=== PATIENT | female | born 1955 | race Caucasian/White ===

== ENCOUNTER 2020-08-06 13:42 | Emergency (ER) | payer MEDICARE, OTHER ==
--- NOTE | 2020-08-06 14:11 | ED Physician Documentation ---
History of Present Illness - Stated complaint Stated Complaint: SOA/PALPITATIONS - Chief complaint Chief Complaint: Cardiac - History obtained from History obtained from: Patient, Family - History of Present Illness Timing: Today Pain level max: 0 Pain level now: 0 - Additonal information Additional information: Is a 65-year-old female who is status post cardiac stent on June 02 in [place]. She states that she has been having palpitations since that time. She was seen at cardiac rehab 4 days ago and they stated that she had premature ventricular contractions. She states that the symptoms have continued since that time. Feels intermittently short of breath as well. Nothing makes it better or worse. She is unsure of what medication she is on currently but does know that she is on a statin and Brilinta. Patient is unsure of the doses. She does not smoke. No chest pain. No fevers. No cough. No chills. Review of Systems Ten Systems: 10 systems reviewed and negative Constitutional: denies: Fever, Chills Respiratory: denies: Cough GI: denies: Nausea, Vomiting, Diarrhea Skin: denies: Rash Musculoskeletal: denies: Neck pain, Back pain Neurologic: denies: Headache PD PAST MEDICAL HISTORY - Past Medical History Past Medical History: Yes Cardiovascular: Coronary artery disease - Past Surgical History Past Surgical History: Yes Cardiovascular: Coronary stent - Present Medications Home Medications: Ambulatory Orders Medication Instructions Recorded Confirmed Albuterol Sulfate [Proair 90 mcg IH PRN PRN 08/06/20 08/06/20 Digihaler] Alprazolam [Xanax] 0.25 mg PO PRN PRN 08/06/20 08/06/20 Cetirizine [ZyrTEC] 10 mg PO DAILY 08/06/20 08/06/20 Cholecalciferol [Vitamin D3] 1 tab PO DAILY 08/06/20 08/06/20 Cyanocobalamin (Vitamin B-12) 1,000 mcg PO DAILY 08/06/20 08/06/20 [Vitamin B-12] Fluticasone Propionate [Flovent 50 mcg IH DAILY 08/06/20 08/06/20 Diskus] Fluticasone/Salmeterol [Advair 1 each IH DAILY 08/06/20 08/06/20 100-50 Diskus] Montelukast [Singulair] 10 mg PO QPM 08/06/20 08/06/20 Ofloxacin 0.3% Ophth Drops 3 drops EACHEYE DAILY 08/06/20 08/06/20 [Ocuflox 0.3% Ophth Drops] Rosuvastatin Calcium [Ezallor 10 mg PO DAILY 08/06/20 08/06/20 Sprinkle] Sertraline [Zoloft] 100 mg PO DAILY 08/06/20 08/06/20 Ticagrelor [Brilinta] 90 mg PO DAILY 08/06/20 08/06/20 busPIRone [Buspar] 5 mg PO BID 08/06/20 08/06/20 diazePAM [Valium] 5 mg PO DAILY PM 08/06/20 08/06/20 - Allergies Allergies/Adverse Reactions: Allergies Allergy/AdvReac Type Severity Reaction Status Date / Time No Known Drug Allergies Allergy Verified 08/06/20 13:53 - Living Situation Living Situation: reports: With family Living Arrangement: reports: At home PD ED PE NORMAL - Vitals Vital signs reviewed: Yes - General General: Alert and oriented X 3, No acute distress - HEENT HEENT: Moist mucous membranes - Neck Neck: Supple, no meningeal sign - Cardiac Cardiac: RRR, Strong equal pulses - Respiratory Respiratory: No respiratory distress, Clear bilaterally - Abdomen Abdomen: Soft, Non tender, Non distended - Derm Derm: Warm and dry - Extremities Extremities: No edema, No calf tenderness / cord - Neuro Neuro: Alert and oriented X 3 - Psych Psych: Normal mood, Normal affect Results - Vitals Vitals: Vital Signs - 24 hr 08/06/20 08/06/20 08/06/20 13:46 13:59 15:32 Temperature 37.3 C Heart Rate 72 93 63 Respiratory 16 12 10 L Rate Blood Pressure 107/68 107/68 114/65 O2 Saturation 98 99 97 Oxygen O2 Source Room air - EKG (time done) 1346 Rate: Rate (enter#) (69) Rhythm: NSR Brothers: Normal Intervals: Normal MO QRS: Normal Ischemia: Normal ST segments - Labs Labs: Laboratory Tests 08/06/20 08/06/20 08/06/20 13:53 13:53 13:53 WBC 10.1 RBC 3.79 L Hgb 12.0 Hct 35.2 L MCV 92.9 MCH 31.7 H MCHC 34.1 RDW 13.6 Plt Count 283 MPV 10.2 Neut # (Auto) 4.7 Lymph # (Auto) 4.1 H Dickens # (Auto) 0.8 Eos # (Auto) 0.4 Baso # (Auto) 0.1 Absolute Nucleated RBC 0.00 Nucleated RBC % 0.0 Sodium 137 Potassium 3.5 Chloride 104 Carbon Dioxide 23 Anion Gap 10.0 BUN 18 Creatinine 0.6 Estimated GFR (MDRD) 100 Glucose 87 Calcium 9.6 Phosphorus 3.3 Magnesium 2.5 Total Bilirubin 0.5 AST 27 ALT 31 Alkaline Phosphatase 61 Troponin I High Sens 3.0 Total Protein 7.2 Albumin 4.5 Globulin 2.7 Albumin/Globulin Ratio 1.7 Lipase 35 - Rads (name of study) cxr Radiology: Prelim report reviewed, EMP read contemporaneously, See rad report (No acute disease) PD MEDICAL DECISION MAKING - ED course Complexity details: reviewed results, re-evaluated patient, considered differential (No ST elevation AZ, no aortic dissection, no PE, no tension pneumothorax, no aortic aneurysm), d/w patient ED course: Patient with symptomatic PVCs. These are occasional. She also has a dyspnea, likely secondary to the Brilinta. 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 She does not have a medication list with her. If she is not on a beta-isabella, 1 may help with her symptomatic PVCs. No evidence of acute AZ, PE, pneumothorax. Symptoms resolved in the emergency department. We will have her follow-up with her tin plater. Patient counseled regarding signs and symptoms for which I believe and urgent re-evaluation would be necessary. Patient with good understanding of and agreement to plan and is comfortable going home at this time This document was made in part using voice recognition software. While efforts are made to proofread this document, sound alike and grammatical errors may occur. Departure - Departure Disposition: 01 Home, Self Care Clinical Impression: Premature ventricular contraction Dyspnea Qualifiers: Dyspnea type: shortness of breath Qualified Code(s): R06.02 - Shortness of breath Condition: Good Instructions: Premature Ventricular Contract About, Premature Ventricular Contract Tx Follow-Up: your,doctor in 1 week [Other] Comments: You do have premature ventricular contractions. Is important to follow-up with cardiology regarding this to see if they need to adjust your medications. The Brilinta may be causing the dyspnea as that is a common side effect and will likely go away if they change you to a different medication. Please follow-up with cardiology regarding this as well. Return if you worsen. Discharge Date/Time: 08/06/20 15:38
--- NOTE | 2020-08-06 14:20 | XRAY Report ---
PROCEDURE: Chest 1 View X-Ray INDICATIONS: Chest Pain TECHNIQUE: One view of the chest was acquired. COMPARISON: None FINDINGS: Surgical changes and devices: None. Lungs and pleura: No pleural effusions or pneumothorax. Lungs are clear. Mediastinum: Mediastinal contours appear normal. Heart size is normal. Bones and chest wall: No suspicious bony lesions. Overlying soft tissues appear unremarkable. IMPRESSION: No evidence acute pulmonary process. Reviewed by: Lewis Donahue MD on 08/06/2020 1:18 PM VERONIKA Approved by: Lewis Donahue MD on 08/06/2020 1:18 PM VERONIKA Station ID: [id number]
[2020-08-06 14:22] LABS: BASOPHILS # (AUTO) 0.1 10^3/uL (0.0-0.1); BASOPHILS % (AUTO) 0.8 %; EOSINOPHILS # (AUTO) 0.4 10^3/uL (0.0-0.7); EOSINOPHILS % (AUTO) 3.6 %; HCT - HEMATOCRIT 35.2 % (37.0-47.0); LYMPHOCYTES # (AUTO) 4.1 10^3/uL (1.5-3.5); LYMPHOCYTES % (AUTO) 40.6 %; MEAN CORPUSCULAR HEMOGLOBIN 31.7 pg (27.0-31.0); MEAN CORPUSCULAR HGB CONC 34.1 g/dL (32.0-36.0); MEAN CORPUSCULAR VOLUME 92.9 fL (81.0-99.0); MEAN PLATELET VOLUME 10.2 fL (7.9-10.8); MONOCYTES # (AUTO) 0.8 10^3/uL (0.0-1.0); MONOCYTES % (AUTO) 8.3 %; NEUTROPHILS # (AUTO) 4.7 10^3/uL (1.5-6.6); NEUTROPHILS % (AUTO) 46.5 %; PLT - PLATELET COUNT 283 10^3/uL (130-450); RED BLOOD COUNT 3.79 10^6/uL (4.20-5.40); RED CELL DISTRIBUTION WIDTH 13.6 % (12.0-15.0); WHITE BLOOD COUNT 10.1 x10^3/uL (4.8-10.8)
[2020-08-06 14:36] LABS: ALBUMIN 4.5 g/dL (3.2-5.5); ALBUMIN/GLOBULIN RATIO 1.7 (1.0-2.2); BILIRUBIN,TOTAL 0.5 mg/dL (0.2-1.0); CALCIUM 9.6 mg/dL (8.5-10.3); CREATININE 0.6 mg/dL (0.4-1.0); MAGNESIUM 2.5 mg/dL (1.7-2.8); PHOSPHORUS 3.3 mg/dL (2.5-4.6); POTASSIUM 3.5 mmol/L (3.5-5.0); TOTAL PROTEIN 7.2 g/dL (6.7-8.2)
[2020-08-06 15:33] VITALS: BP 114/65
== END 2020-08-06 15:38 | disposition home or self-care (01) ==
LOC: ED 13:42
DX: I49.3 Ventricular premature depolarization (principal); R06.02 Shortness of breath; I25.10 Atherosclerotic heart disease of native coronary artery without angina pectoris; Z95.5 Presence of coronary angioplasty implant and graft
CPT/HCPCS: 36415; 80053; 83690; 83735; 84100; 84484; 85025; 93005; 99284

== ENCOUNTER 2020-09-19 11:57 | Emergency (ER) | payer MEDICARE, OTHER ==
[2020-09-19 12:25] VITALS: BP 144/61
--- NOTE | 2020-09-19 13:02 | ED Physician Documentation ---
PD HPI HEAD INJURY - Stated complaint Stated Complaint: HEAD PX - Chief complaint Chief Complaint: Trauma Hd/Nk - History obtained from History obtained from: Patient - Additional information Additional information: 65-year-old woman who is on anticoagulation for coronary disease, specifically Effient and aspirin hit the back of her head on a nonrunning fan on their boat just prior to arrival. No loss of consciousness, headache, or other injuries. Review of Systems Constitutional: denies: Fever, Chills Cardiac: reports: Reviewed and negative Respiratory: reports: Reviewed and negative PD PAST MEDICAL HISTORY - Past Medical History Cardiovascular: Coronary artery disease Respiratory: Asthma Psych: Depression, Anxiety - Past Surgical History Past Surgical History: Yes Cardiovascular: Coronary stent - Present Medications Home Medications: Ambulatory Orders Medication Instructions Recorded Confirmed Albuterol Sulfate [Proair 90 mcg IH PRN PRN 08/06/20 08/06/20 Digihaler] Alprazolam [Xanax] 0.25 mg PO PRN PRN 08/06/20 08/06/20 Cetirizine [ZyrTEC] 10 mg PO DAILY 08/06/20 08/06/20 Cholecalciferol [Vitamin D3] 1 tab PO DAILY 08/06/20 08/06/20 Cyanocobalamin (Vitamin B-12) 1,000 mcg PO DAILY 08/06/20 08/06/20 [Vitamin B-12] Fluticasone Propionate [Flovent 50 mcg IH DAILY 08/06/20 08/06/20 Diskus] Fluticasone/Salmeterol [Advair 1 each IH DAILY 08/06/20 08/06/20 100-50 Diskus] Montelukast [Singulair] 10 mg PO QPM 08/06/20 08/06/20 Ofloxacin 0.3% Ophth Drops 3 drops EACHEYE DAILY 08/06/20 08/06/20 [Ocuflox 0.3% Ophth Drops] Rosuvastatin Calcium [Ezallor 10 mg PO DAILY 08/06/20 08/06/20 Sprinkle] Sertraline [Zoloft] 100 mg PO DAILY 08/06/20 08/06/20 Ticagrelor [Brilinta] 90 mg PO DAILY 08/06/20 08/06/20 busPIRone [Buspar] 5 mg PO BID 08/06/20 08/06/20 diazePAM [Valium] 5 mg PO DAILY PM 08/06/20 08/06/20 - Allergies Allergies/Adverse Reactions: Allergies Allergy/AdvReac Type Severity Reaction Status Date / Time No Known Drug Allergies Allergy Verified 08/06/20 13:53 - Social History Does the pt smoke?: No Smoking Status: Never smoker Does the pt drink ETOH?: No - Immunizations Immunizations are current?: Yes - POLST Patient has POLST: No PD ED PE NORMAL - Vitals Vital signs reviewed: Yes - General General: Alert and oriented X 3, No acute distress - HEENT HEENT: PERRL, EOMI - Neck Neck: Supple, no meningeal sign, No bony TTP - Neuro Neuro: Alert and oriented X 3, 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, No motor deficit, No sensory deficit, Normal speech Eye Opening: Spontaneous Motor: Obeys Commands Verbal: Oriented GCS Score: 15 Results - Vitals Vitals: Vital Signs - 24 hr 09/19/20 12:22 Temperature 36.5 C Heart Rate 66 Respiratory 16 Rate Blood Pressure 144/61 H O2 Saturation 99 Oxygen O2 Source Room air - Rads (name of study) Ct Head Radiology: EMP read contemporaneously (NAD) Departure - Departure Disposition: 01 Home, Self Care Clinical Impression: Head injury Condition: Good Record reviewed to determine appropriate education?: Yes Instructions: ED Head Injury Closed Comments: Recheck with your physician on return home, return for new or worsening symptoms.
--- NOTE | 2020-09-19 13:21 | CT Report ---
PROCEDURE: HEAD WO INDICATIONS: head injury TECHNIQUE: Noncontrast 4.5 mm thick angled axial sections acquired from the foramen magnum to the vertex. For r adiation dose reduction, the following was used: automated exposure control, adjustment of mA and/or kV according to patient size. COMPARISON: None. FINDINGS: Image quality: Excellent. CSF spaces: Basal cisterns are patent. No extra-axial fluid collections. Ventricles are normal in size and shape. Brain: No midline shift. No intracranial masses or hemorrhage. Munson-white matter interface is norm al. Skull and face: Prior left suboccipital craniectomy. Visualized facial bones are intact, without susp icious lesions. Sinuses: Visualized sinuses and mastoids are clear. IMPRESSION: No acute intracranial disease process. Reviewed by: Romelia Mcnally MD, PhD on 09/19/2020 1:20 PM PDT Approved by: Romelia Mcnally MD, PhD on 09/19/2020 1:20 PM PDT Station ID: [id number]
== END 2020-09-19 13:47 | disposition home or self-care (01) ==
LOC: ED 11:57
DX: S09.90XA Unspecified injury of head, initial encounter (principal); W22.8XXA Striking against or struck by other objects, initial encounter; Y92.814 Boat as the place of occurrence of the external cause; I25.10 Atherosclerotic heart disease of native coronary artery without angina pectoris; Z95.1 Presence of aortocoronary bypass graft; Z79.01 Long term (current) use of anticoagulants
CPT/HCPCS: 99282; 99284

== ENCOUNTER 2023-08-30 13:00 | Outpatient (CLI) | payer MEDICARE, OTHER ==
[2023-08-30 18:41] LABS: ALBUMIN 4.3 g/dL (3.2-5.5); ALBUMIN/GLOBULIN RATIO 1.7 (1.0-2.2); ALKALINE PHOSPHATASE 82 IU/L (42-121); ALT ALANINE AMINOTRANSFERASE 13 IU/L (10-60); AST ASPARTATE AMINOTRANSFERASE 13 IU/L (10-42); BILIRUBIN,TOTAL 0.3 mg/dL (0.2-1.0); BUN - BLOOD UREA NITROGEN 14 mg/dL (6-20); CALCIUM 9.8 mg/dL (8.5-10.3); CARBON DIOXIDE - CO2 23 mmol/L (21-32); CHLORIDE 109 mmol/L (101-111); CHOL/HDL RATIO 3.6 (<4.4); CHOLESTEROL 142 mg/dL; CREATININE 0.7 mg/dL (0.6-1.3); GFR - MDRD 83 (>89); GLUCOSE 87 mg/dL (74-104); HDL CHOLESTEROL 39 mg/dL; LDL CHOLESTEROL,CALCULATED 84 mg/dL; LDL/HDL RATIO 2.2 (<4.4); POTASSIUM 3.9 mmol/L (3.5-4.5); SODIUM 139 mmol/L (135-145); TOTAL PROTEIN 6.9 g/dL (6.4-8.9); TRIGLYCERIDES 94 mg/dL; VLDL CHOLESTEROL 19 mg/dL
== END 2023-08-30 13:01 | disposition home or self-care (01) ==
LOC: LAB.N 13:00
DX: I25.10 Atherosclerotic heart disease of native coronary artery without angina pectoris (principal); E78.2 Mixed hyperlipidemia
CPT/HCPCS: 36415; 80053; 80061; 83721